=== PATIENT | female | born 1995 | race African-American/Black ===

== ENCOUNTER 2020-04-03 17:35 | Emergency (ER) | payer OTHER ==
--- NOTE | 2020-04-03 18:58 | RAD ---
PORTABLE CHEST: 04/03/20 PROVIDED CLINICAL HISTORY: Cough. FINDINGS: cardiac and mediastinal silhouette is within normal limits. No focal consolidation, pleural fluid or pneumothorax apparent. IMPRESSION: No radiographic evidence for an acute cardiopulmonary process. POS: [facility]
[2020-04-04 17:10] LABS: SARS-CoV-2 MS2 Positive; SARS-CoV-2 N Gene Negative; SARS-CoV-2 S Gene Negative; SARS-CoV-2 orf1ab Negative
== END 2020-04-03 18:55 | disposition home or self-care (01) ==
LOC: NAV ERS 17:35
DX: R05 Cough (principal); R06.00 Dyspnea, unspecified; Z20.828 Contact with and (suspected) exposure to other viral communicable diseases
CPT/HCPCS: 71045; 87635; U0003

== ENCOUNTER 2022-01-18 18:51 | Emergency (ER) | payer BC, OTHER, SELFPAY ==
[2022-01-18 19:38] LABS: Bilirubin Negative (Negative); Blood, Urine Negative (Negative); Clarity Clear (Clear); Glucose, Urine (Dipstick) Negative (Negative); Ketone, Urine Negative (Negative); Leukocyte Negative (Negative); Nitrite Negative (Negative); Protein, Urine (Dipstick) Negative (Neg-Trace); Specific Gravity, Urine 1.025 (1.005-1.030); Urobilinogen 0.2 mg/dL (Less than 2)
[2022-01-18 19:39] LABS: Pregnancy Test - Urine (BHCG) Negative (Negative); Pregu Control Background? CLEAR/WHITE (CLR/WHITE); Pregu Control Bar Appear? YES (CONTROL BAR); Specific Gravity 1.025 (1.002-1.036)
[2022-01-18] MEDS ORDERED: Ondansetron ODT 4 MG TAB ONE (19:54)
== END 2022-01-18 20:05 | disposition home or self-care (01) ==
LOC: NAV ERS 18:51
DX: R07.89 Other chest pain (principal); R11.0 Nausea; R00.1 Bradycardia, unspecified; Z79.899 Other long term (current) drug therapy
CPT/HCPCS: 71045; 81003; 81025; 93005; Q0162